=== PATIENT | male | born 1950 | race African-American/Black ===

== ENCOUNTER 2019-11-04 14:28 | Emergency (ER) | payer OTHER ==
[~2019-11-04] VITALS: Ht 182.9 cm; Wt 79.4 kg
[2019-11-04 16:53] LABS: ABSOLUTE NEUTROPHILS 2.7 thou/uL (1.4-8.2); BASOPHILS 0.6 % (0.0-2.0); EOSINOPHILS 0.4 % (0.0-3.0); HEMOGLOBIN 12.6 gm/dL (14.0-18.0); LYMPHOCYTES 32.7 % (24.0-44.0); MCH 33.4 pg (26.0-34.0); MCV 101.2 fL (80.0-100.0); MONOCYTES 8.9 % (1.0-8.0); PLATELET COUNT 161 thou/uL (150-400); POLYS 57.4 % (36.0-66.0); RBC 3.75 mil/uL (4.50-6.00); RDW 13.6 % (10.5-14.5); WBC 4.8 thou/uL (4.0-11.0)
[2019-11-04 16:59] LABS: URINE BILIRUBIN NEGATIVE (Negative); URINE BLOOD TRACE (Negative); URINE CLARITY CLEAR; URINE COLOR YELLOW; URINE GLUCOSE-RANDOM* NEGATIVE (Negative); URINE KETONES NEGATIVE (Negative); URINE LEUKOCYTES-REFLEX NEGATIVE (Negative); URINE NITRITE-REFLEX NEGATIVE (Negative); URINE PROTEIN (DIPSTICK) NEGATIVE (Negative)
[2019-11-04 17:01] LABS: CALCIUM 8.7 mg/dL (8.5-10.1); CREATININE 1.4 mg/dL (0.7-1.3); POTASSIUM 3.8 mmol/L (3.5-5.1)
[2019-11-04 17:07] LABS: ALBUMIN 3.4 g/dL (3.4-5.0); TOTAL BILIRUBIN 0.9 mg/dL (0.2-1.0); TOTAL PROTEIN 7.2 g/dL (6.4-8.2)
[2019-11-04] MEDS ORDERED: LEVAQUIN 750 M750 MG PO (18:29)
[2019-11-04 18:37] VITALS: BP 130/68
== END 2019-11-04 18:37 | disposition home or self-care (01) ==
LOC: ER 14:28
PROVIDERS: Physician Assistant
DX: U07.1 COVID-19 (principal); J12.89 Other viral pneumonia; F17.210 Nicotine dependence, cigarettes, uncomplicated